=== PATIENT | male | born 1965 | race Two or more races ===

== ENCOUNTER 2023-09-26 10:02 | Day surgery (SDC) | payer OTHER | END 2023-09-26 15:50 | disposition home or self-care (01) | LOC: CIR.AMB 10:02 | PROVIDERS: ATTEND Internal Medicine Gastroenterology | DX: D12.2 Benign neoplasm of ascending colon (principal); Z20.822 Contact with and (suspected) exposure to COVID-19 ==

== ENCOUNTER 2024-09-20 21:06 | Emergency (ER) | payer OTHER ==
[~2024-09-20] VITALS: Ht 182.9 cm; Wt 83.5 kg
[2024-09-20] MEDS ORDERED: 0.9 % SODIUM CHLORIDE 1,000 ML IV STA (21:55)
[2024-09-20 22:24] LABS: HEMATOCRIT 43.9 % (39.0-48.0); HEMOGLOBIN 15.6 g/dL (13-16.00); MEAN CELL VOLUME 91.4 fL (80.0-100.00); MEAN CORPUSCULAR HEMOGLOBIN 32.5 pg (27.00-32.0); MEAN CORPUSCULAR HGB CONC 35.6 g/dl (32.0-36.0); PLATELET COUNT 170 K/uL (150-450); RED CELL DISTRIBUTION WIDTH 12.7 % (11.5-14.5)
[2024-09-20 22:49] LABS: INR 1.04; PARTIAL THROMBOPLASTIN TIME 27.9 SECONDS (22.0-34.0); PROTHROMBIN TIME 11.3 SECONDS (9.0-11.5)
[2024-09-20 22:54] LABS: ALBUMIN 3.9 gm/dL (3.4-5.0); BILIRUBIN TOTAL 2.97 mg/dL (0.3-1.2); CALCIUM 9.3 mg/dL (8.5-10.1); CREATININE SERUM 1.48 mg/dL (0.70-1.30); GFR 48.48; GLOBULINA 4.2 G/DL (2.4-3.5); POTASSIUM 4.26 mEq/L (3.5-5.1); TOTAL PROTEIN 8.1 gm/dL (6.4-8.2)
[2024-09-20 22:55] LABS: MAGNESIUM 1.8 mg/dL (1.8-2.4)
== END 2024-09-21 00:19 | disposition home or self-care (01) ==
LOC: ER 21:08
PROVIDERS: General Practice
DX: R68.83 Chills (without fever) (principal)